=== PATIENT | male | born 1945 | race Caucasian/White ===

== ENCOUNTER → 2020-04-18 11:28 | Outpatient (CLI) | payer MEDICARE, SELFPAY ==
[2020-04-18 12:25] LABS: Hematocrit 43.3 % (40-54); Hemoglobin 14.3 g/dL (13.0-16.5); Mean Corpuscular Hgb 30.8 pg (27.0-32.0); Mean Corpuscular Volume 93.3 fL (80-94); Mean Platelet Vol. 10.7 fl (6.2-12.0); Platelet Count 199 K/mm3 (150-450); RBC Distribution Width CV 13.1 % (11.6-14.6); RBC Distribution Width SD 44.7 fl (35.1-43.9); Red Blood Count 4.64 M/mm3 (4.6-6.2); White Blood Count 9.9 K/mm3 (4.4-11.0)
[2020-04-18 12:46] LABS: Anion Gap 11 (5-15); BUN 28 mg/dL (7-18); BUN/Creat Ratio 21.2 RATIO (10-20); Calcium,Total 9.5 mg/dL (8.5-10.1); Chloride 100 mmol/L (98-107); Creatinine, Serum 1.32 mg/dL (0.70-1.30); EST Glomerular Filtration Rate 56 mL/min (>60); Est Glom Filt Rate - Afr Amer 68 mL/min (>60); Glucose 235 mg/dL (74-106); Potassium 4.3 mmol/L (3.5-5.1); Sodium Level 134 mmol/L (136-145)
== END ==
PROVIDERS: PCP Family Medicine; Referring Provider Urology; Visit Provider Urology
DX: I10 Essential (primary) hypertension (principal)
CPT/HCPCS: 36415; 80048; 85027; 93005

== ENCOUNTER → 2020-05-03 | Outpatient (CLI) | payer MEDICARE, SELFPAY ==
--- NOTE | 2020-05-03 08:32 | CALC_PTH ---
PATIENT: MELA GOLDMAN LOC: [facility] U#:[id number] AGE/SX: 74/M ROOM: RE05/03/[address]: Dr. Erasmo Bauman MD : 1945 BED: DIS: 05/03/2020 SPEC #: [id number] RECD: 05/03/20 15:07 STATUS: JAMAL MORROW #: [id number] KATARINA: 05/03/20 08:[address]: Erasmo Bauman DEPT: SURGICAL PATHOLOGY RECD BY: Chris Rios ENTERED: 05/06/20 07:47 SP TYPE: Calculi OTHR DR: Dr. Haresh Mathur MD [facility] Tissues: CALCULI Procedures: Surgery Specimen Level I HEADER OPERATION: Right ureteral sacral, laser stone, right ureteral stent PRE-OP DIAGNOSIS: Calculus of ureter TISSUE SUBMITTED: Stones for analysis GROSS DIAGNOSIS Fragments of stone, clinically ureteral calculi, submitted for analysis. SJ:olamide 05/06/20 COMMENT The calculus is submitted in its entirety for chemical stone analysis. The results from this study will be reported separately. GROSS DESCRIPTION Received in normal saline is one container labeled with the patient's name and not further designated. The specimen consists of multiple fragments of mcbride-brown stone that in aggregate measure 1.5 x 0.3 x 0.2 cm. The entire specimen is submitted for stone analysis. / SJ:olamide 05/06/20 CPT: 31710
== END | disposition home or self-care (01) ==
LOC: LABSPEC 15:14
PROVIDERS: PCP Family Medicine; Referring Provider Urology; Visit Provider Urology
DX: N20.1 Calculus of ureter (principal)
CPT/HCPCS: 88300